=== PATIENT | male | born 2000 | race Two or more races ===

== ENCOUNTER 2022-06-14 15:07 | Emergency (ER) | payer BC ==
[~2022-06-14] VITALS: Ht 170.2 cm; Wt 55.6 kg
[2022-06-14 17:01] VITALS: BP 100/62
== END 2022-06-14 17:03 | disposition left against medical advice (07) ==
LOC: ER 15:07
DX: R10.84 Generalized abdominal pain (principal); R11.2 Nausea with vomiting, unspecified; Z53.21 Procedure and treatment not carried out due to patient leaving prior to being seen by health care provider